=== PATIENT | female | born 1990 | race Caucasian/White ===

== ENCOUNTER 2018-05-25 18:57 | Inpatient (IN) | payer BC, MEDICARE ==
[~2018-05-25] VITALS: Ht 157.5 cm; Wt 85.3 kg
[~2018-05-25 18:57] MED LIST: ETOMIDATE 2MG/ML 10ML VIAL IV ONE; VECURONIUM BROMIDE 10 MG/VIAL IV ONE
[2018-05-25] MEDS ORDERED: SODIUM CHLORIDE 0.9% 1,000 ML IV ONE ×6 (19:22→21:47)
[2018-05-25] MEDS ORDERED: ONDANSETRON HCL 4MG/2ML INJ IV ONE (19:30)
[2018-05-25 20:54] LABS: HEMATOCRIT. 28.6 % (36.0-48.0); HEMOGLOBIN. 9.1 g/dL (12.0-16.0); MEAN CORPUSCULAR HEMOGLOBIN 32.7 pg (28.0-32.0); MEAN CORPUSCULAR VOLUME 102.3 fL (81.0-99.0); MEAN PLATELET VOLUME 11.5 fl (7.4-10.4); PLATELET 181 x1000/uL (130-400); RED BLOOD CELL COUNT 2.79 mill/uL (4.2-5.4); RED CELL DISTRIBUTION WIDTH 13.2 % (11.6-14.6)
[2018-05-25] MEDS ORDERED: METRONIDAZOLE 500 MG PREMIX 100 ML IV ONE (21:15)
[2018-05-25] MEDS ORDERED: CEFTRIAXONE 1 G PREMIX 50 ML IV ONE (21:15)
[2018-05-25 21:24] LABS: CHLORIDE 107 mEq/L (98-107)
[2018-05-25] MEDS ORDERED: ETOMIDATE 2MG/ML 10ML VIAL IV ONE (21:30)
[2018-05-25] MEDS ORDERED: PROPOFOL 10MG/ML 100ML 100 ML IV ONE (21:30)
[2018-05-25] MEDS ORDERED: VECURONIUM BROMIDE IV ONE (21:30)
[2018-05-25 21:31] LABS: HCG SCREEN POSITIVE
[2018-05-25 21:39] LABS: PLATELET ESTIMATE NORMAL
[2018-05-25] MEDS ORDERED: ONDANSETRON HCL 4MG/2ML INJ IV STA (21:47)
[2018-05-25 22:36] LABS: BG BASE EXCESS -26.3 mmol/L (-2.0-2.0); BG CARBOXYHEMOGLOBIN 0.1 % (0.5-1.5); BG DEOXYHEMOGLOBIN 1.8 % (0.0-5.0); BG FRACTION INSPIRED OXYGEN 100; BG HCO3 ACT 5.2 mmol/L (22.0-26.0); BG METHEMOGLOBIN 2.9 % (0.0-1.5); BG OXYGEN SATURATION 98.1 % (92.0-98.5); BG OXYHEMOGLOBIN 95.2 % (94.0-97.0); BG PCO2 31.4 mmHg (35.0-45.0); BG SAMPLE SITE RIGHT BRACHIAL; BG TIDAL VOLUME(mL) 500 mL; BG TOTAL HEMOGLOBIN 6.2 g/dL (12.0-18.0); BG VENT MODE VENT - A/C; BG VENT RATE 14 set
[2018-05-25] MEDS ORDERED: SODIUM BICARBONATE 8.4% 1 MEQ/ML 50ML SYR IV ONE ×6 (22:45→22:53)
[2018-05-25] MEDS ORDERED: PHENYLEPHRINE HCL 10 MG/ML 1ML (IV VIAL) IV ONE (22:57)
[2018-05-25] MEDS ORDERED: EPHEDRINE SULFATE 50MG/ML VIAL ONE (23:01)
[2018-05-25] MEDS ORDERED: FENTANYL CITRATE/PF 50MCG/ML 2ML VIAL ONE (23:07)
[2018-05-25] MEDS ORDERED: ROCURONIUM BROMIDE 10MG/ML VIAL 5ML IV ONE (23:07)
[2018-05-25] MEDS ORDERED: MAGNESIUM/ALUMINUM HYDROXIDE/SIMETHICONE 30ML UDC PO PRN (23:15)
[2018-05-25] MEDS ORDERED: ONDANSETRON HCL 4MG/2ML INJ IV PRN (23:15)
[2018-05-25] MEDS ORDERED: HYDROCODONE/ACETAMINOPHEN 10/325MG TABLET PO PRN (23:15)
[2018-05-25] MEDS ORDERED: CLONIDINE 0.1MG TABLET PO PRN (23:15)
[2018-05-25] MEDS ORDERED: DIPHENHYDRAMINE 50MG/ML VIAL IV PRN (23:15)
[2018-05-25] MEDS ORDERED: IPRATROPIUM/ALBUTEROL 0.5-3(2.5)MG/3ML NEB INH PRN (23:15)
[2018-05-25] MEDS ORDERED: DOCUSATE SODIUM 100MG CAPSULE PO PRN (23:15)
[2018-05-25] MEDS ORDERED: HYDRALAZINE 20MG/ML VIAL IV PRN (23:15)
[2018-05-25] MEDS ORDERED: GUAIFENESIN 200MG/10ML SUGAR FREE UDC PO PRN (23:15)
[2018-05-25] MEDS ORDERED: HYDROMORPHONE HCL/PF 2MG/ML CPJ IV PRN (23:15)
[2018-05-25] MEDS ORDERED: LORAZEPAM 2MG/ML CPJ IV PRN (23:15)
[2018-05-25] MEDS ORDERED: SODIUM BICARBONATE 150 MEQ in DEXTROSE 5% WATER 1,000 ML IV SCH (23:30)
[2018-05-25] MEDS ORDERED: SODIUM BICARBONATE 150 MEQ in DEXTROSE 5% WATER 850 ML IV SCH (23:30)
[2018-05-25 23:33] LABS: CLARITY URINE CLEAR (CLEAR); COLOR URINE YELLOW (YELLOW); KETONES URINE TRACE (NEGATIVE); LEUKOCYTE ESTERASE URINE NEGATIVE (NEGATIVE); NITRITE URINE NEGATIVE (NEGATIVE); OCCULT BLOOD URINE 1+ (NEGATIVE); PH URINE 7.5 (4.5-8.0); PROTEIN URINE 1+ (NEGATIVE); UROBILINOGEN URINE 0.2 E.U./dL (0.2-1.0)
[2018-05-25 23:44] LABS: *BARBITURATES SCREEN URINE NEGATIVE (NEGATIVE); *BENZODIAZEPINES SCREEN URINE NEGATIVE (NEGATIVE); PHENCYCLIDINE URINE SCREEN NEGATIVE (NEGATIVE)
[2018-05-25 23:45] LABS: *AMPHETAMINES SCREEN URINE NEGATIVE (NEGATIVE); METHADONE URINE SCREEN NEGATIVE (NEGATIVE); OPIATES URINE SCREEN NEGATIVE (NEGATIVE)
[2018-05-25 23:48] LABS: *COCAINE SCREEN URINE PRESUMTIVE POSITIVE (NEGATIVE); CANNABINOID URINE SCREEN PRESUMTIVE POSITIVE (NEGATIVE)
[2018-05-26] VITALS (57 sets, daily range): BP systolic 107–184; BP diastolic 62–108
[2018-05-26] MEDS ORDERED: ALBUMIN HUMAN 12.5G/250ML (5%) IV ONE ×2 (00:03→00:18)
[2018-05-26 00:22] LABS: BG BASE EXCESS -13.9 mmol/L (-2.0-2.0); BG CARBOXYHEMOGLOBIN 0.3 % (0.5-1.5); BG DEOXYHEMOGLOBIN 1.4 % (0.0-5.0); BG FRACTION INSPIRED OXYGEN 100; BG METHEMOGLOBIN 0.8 % (0.0-1.5); BG OXYGEN SATURATION 98.6 % (92.0-98.5); BG OXYHEMOGLOBIN 97.5 % (94.0-97.0); BG PCO2 40.8 mmHg (35.0-45.0); BG PH 7.154 (7.350-7.450); BG PO2 264.9 mmHg (75.0-100.0); BG SAMPLE SITE A-LINE; BG TIDAL VOLUME(mL) 600 mL; BG TOTAL HEMOGLOBIN 9.2 g/dL (12.0-18.0); BG VENT MODE VENT - A/C; BG VENT RATE 8 set
[2018-05-26 00:30] LABS: HEMATOCRIT 25.9 % (36.0-48.0); HEMOGLOBIN 8.5 g/dL (12.0-16.0); MEAN CORPUSCULAR VOLUME 91.4 fL (81.0-99.0); PLATELET 81 x1000/uL (130-400); RED BLOOD CELL COUNT 2.83 mill/uL (4.2-5.4); RED CELL DISTRIBUTION WIDTH 15.1 % (11.6-14.6)
[2018-05-26] MEDS ORDERED: METHYLENE BLUE 50 MG/10 ML AMP IV ONE (00:36)
[2018-05-26 00:42] LABS: INR 1.7; PARTIAL THROMBOPLASTIN TIME 41.8 sec (23.4-31.0); PROTHROMBIN TIME 16.6 sec (9.1-11.1)
[2018-05-26] MEDS ORDERED: FENTANYL CITRATE/PF 50MCG/ML 2ML VIAL ONE (00:56)
[2018-05-26 01:54] LABS: CHLORIDE 114 mEq/L (98-107)
[2018-05-26] MEDS ORDERED: ONDANSETRON HCL 4MG/2ML INJ IV PRN ×2 (02:15→03:15)
[2018-05-26] MEDS ORDERED: BISACODYL 10MG SUPP PR PRN (02:15)
[2018-05-26] MEDS ORDERED: DIPHENHYDRAMINE 25MG CAPSULE PO PRN (02:15)
[2018-05-26] MEDS ORDERED: IBUPROFEN 800MG TABLET PO PRN (02:15)
[2018-05-26] MEDS ORDERED: HYDROMORPHONE HCL/PF 2MG/ML CPJ IM PRN (02:15)
[2018-05-26] MEDS ORDERED: IBUPROFEN 400MG TABLET PO PRN (02:15)
[2018-05-26] MEDS ORDERED: CALCIUM CHLORIDE 1GM/10ML SYR IV SCH (02:45)
[2018-05-26] MEDS ORDERED: HYDROMORPHONE HCL/PF 2MG/ML CPJ IV PRN ×2 (02:45→03:15)
[2018-05-26 03:15] LABS: BG BASE EXCESS -5.7 mmol/L (-2.0-2.0); BG CARBOXYHEMOGLOBIN 0.3 % (0.5-1.5); BG DEOXYHEMOGLOBIN 4.3 % (0.0-5.0); BG FRACTION INSPIRED OXYGEN 100; BG HCO3 ACT 20.8 mmol/L (22.0-26.0); BG METHEMOGLOBIN 0.6 % (0.0-1.5); BG OXYGEN SATURATION 95.7 % (92.0-98.5); BG OXYHEMOGLOBIN 94.8 % (94.0-97.0); BG PCO2 44.9 mmHg (35.0-45.0); BG PH 7.284 (7.350-7.450); BG PO2 90.5 mmHg (75.0-100.0); BG SAMPLE SITE A-LINE; BG TIDAL VOLUME(mL) 500 mL; BG TOTAL HEMOGLOBIN 10.7 g/dL (12.0-18.0); BG VENT MODE VENT - A/C; BG VENT RATE 14 set
[2018-05-26] MEDS ORDERED: LABETALOL 5MG/ML SYR 20 MG/4 ML SYRINGE IV PRN (03:15)
[2018-05-26] MEDS ORDERED: MEPERIDINE HCL/PF 25MG/ML CPJ IV PRN (03:15)
[2018-05-26 03:24] LABS: HEMATOCRIT. 29.4 % (36.0-48.0); MEAN CORPUSCULAR HEMOGLOBIN 29.6 pg (28.0-32.0); MEAN CORPUSCULAR VOLUME 87.3 fL (81.0-99.0); MEAN PLATELET VOLUME 8.8 fl (7.4-10.4); PLATELET 62 x1000/uL (130-400); RED BLOOD CELL COUNT 3.36 mill/uL (4.2-5.4); RED CELL DISTRIBUTION WIDTH 14.8 % (11.6-14.6)
[2018-05-26 03:26] LABS: CHLORIDE 113 mEq/L (98-107)
[2018-05-26 03:29] LABS: INR 1.5; PARTIAL THROMBOPLASTIN TIME 39.4 sec (23.4-31.0); PROTHROMBIN TIME 14.5 sec (9.1-11.1)
[2018-05-26 05:44] LABS: PLATELET ESTIMATE DECREASED
[2018-05-26] MEDS ORDERED: PROPOFOL 10MG/ML 100ML 100 ML IV PRN (07:15)
[2018-05-26 08:57] LABS: BASOPHILS % 0.1 % (0.0-2.0); HEMATOCRIT. 32.7 % (36.0-48.0); HEMOGLOBIN. 11.2 g/dL (12.0-16.0); LYMPHOCYTES % 9.3 % (20.0-50.0); MEAN CORPUSCULAR HEMOGLOBIN 29.6 pg (28.0-32.0); MEAN PLATELET VOLUME 9.1 fl (7.4-10.4); MONOCYTES % 6.3 % (2.0-8.0); NEUTROPHILS % 84.3 % (40.0-76.0); PLATELET 77 x1000/uL (130-400); RED CELL DISTRIBUTION WIDTH 15.3 % (11.6-14.6)
[2018-05-26] MEDS: DEXT 5%/0.45% NACL KCL 10MEQ/L 1,000 ML IV SCH ×2 (09:22→20:10)
[2018-05-26 09:23] LABS: CHLORIDE 113 mEq/L (98-107)
[2018-05-26 09:31] LABS: CREATINE KINASE 237 IU/L (26-192)
[2018-05-26 09:33] LABS: CREATINE KINASE MB FRACTION 6.9 ng/mL (0.5-3.6)
[2018-05-26] MEDS: FENTANYL CITRATE/PF 500 MCG in SODIUM CHLORIDE 0.9% 40 ML IV PRN ×3 (10:12→23:50)
[2018-05-26] MEDS: PANTOPRAZOLE SODIUM 40 MG/VIAL IV SCH (10:19)
[2018-05-26] MEDS: MIDAZOLAM HCL 100 MG in DEXT 5% WATER 80 ML IV PRN ×2 (11:03→21:57)
[2018-05-26] MEDS ORDERED: CEFEPIME 1,000 MG in DEXTROSE 5% WATER 50 ML IV SCH (11:30)
[2018-05-26 11:42] LABS: BG BASE EXCESS -3.6 mmol/L (-2.0-2.0); BG CARBOXYHEMOGLOBIN 0.3 % (0.5-1.5); BG FRACTION INSPIRED OXYGEN 100; BG HCO3 ACT 20.4 mmol/L (22.0-26.0); BG METHEMOGLOBIN 0.4 % (0.0-1.5); BG OXYHEMOGLOBIN 98.3 % (94.0-97.0); BG PCO2 33.3 mmHg (35.0-45.0); BG PH 7.405 (7.350-7.450); BG PO2 403.4 mmHg (75.0-100.0); BG SAMPLE SITE A-LINE; BG TIDAL VOLUME(mL) 500 mL; BG VENT MODE VENT - A/C; BG VENT RATE 16 set
[2018-05-26] MEDS: IPRATROPIUM/ALBUTEROL 0.5-3(2.5)MG/3ML NEB HHN SCH ×3 (11:45→19:58)
[2018-05-26] MEDS: AZITHROMYCIN 500 MG in DEXT 5% WATER 250 ML IV SCH (12:05)
[2018-05-26] MEDS: METRONIDAZOLE 500 MG PREMIX 100 ML IV SCH ×2 (12:37→20:09)
[2018-05-26] MEDS: ACETYLCYSTEINE 100MG/ML 10% VIAL 4ML INH SCH (15:10)
[2018-05-26] MEDS: CEFEPIME 1,000 MG in DEXTROSE 5% WATER 50 ML IV SCH (16:01)
[2018-05-26 17:00] LABS: CREATINE KINASE MB FRACTION 5.5 ng/mL (0.5-3.6)
[2018-05-26 20:52] LABS: BASOPHILS % 0.2 % (0.0-2.0); HEMATOCRIT. 26.7 % (36.0-48.0); HEMOGLOBIN. 9.3 g/dL (12.0-16.0); LYMPHOCYTES % 13.9 % (20.0-50.0); MEAN CORPUSCULAR HEMOGLOBIN 29.6 pg (28.0-32.0); MEAN CORPUSCULAR VOLUME 85.3 fL (81.0-99.0); MEAN PLATELET VOLUME 9.8 fl (7.4-10.4); MONOCYTES % 5.8 % (2.0-8.0); NEUTROPHILS % 80.1 % (40.0-76.0); PLATELET 85 x1000/uL (130-400); RED BLOOD CELL COUNT 3.13 mill/uL (4.2-5.4); RED CELL DISTRIBUTION WIDTH 15.5 % (11.6-14.6)
[2018-05-26 21:01] LABS: D-DIMER 3.68 mg/L FEU (<0.50); INR 1.1; PROTHROMBIN TIME 11.4 sec (9.1-11.1)
[2018-05-26] MEDS: SODIUM CHLORIDE 0.9% INJ 3ML FLUSH IVF SCH (21:09)
[2018-05-26] MEDS: DOCUSATE SODIUM 100MG CAPSULE PO SCH (21:09)
[2018-05-27] VITALS (97 sets, daily range): BP systolic 80–157; BP diastolic 40–99
[2018-05-27] MEDS: ACETYLCYSTEINE 100MG/ML 10% VIAL 4ML INH SCH ×4 (00:55→16:25)
[2018-05-27] MEDS: IPRATROPIUM/ALBUTEROL 0.5-3(2.5)MG/3ML NEB HHN SCH ×5 (00:58→20:35)
[2018-05-27] MEDS: CEFEPIME 1,000 MG in DEXTROSE 5% WATER 50 ML IV SCH ×2 (03:59→16:38)
[2018-05-27] MEDS: METRONIDAZOLE 500 MG PREMIX 100 ML IV SCH ×3 (04:31→19:51)
[2018-05-27 05:02] LABS: BASOPHILS % 0.1 % (0.0-2.0); EOSINOPHILS % 0.3 % (0.0-5.0); HEMATOCRIT. 24.2 % (36.0-48.0); HEMOGLOBIN. 8.2 g/dL (12.0-16.0); LYMPHOCYTES % 17.4 % (20.0-50.0); MEAN CORPUSCULAR HEMOGLOBIN 29.4 pg (28.0-32.0); MEAN CORPUSCULAR VOLUME 86.5 fL (81.0-99.0); MEAN PLATELET VOLUME 10.1 fl (7.4-10.4); MONOCYTES % 5.6 % (2.0-8.0); NEUTROPHILS % 76.6 % (40.0-76.0); PLATELET 62 x1000/uL (130-400); RED CELL DISTRIBUTION WIDTH 15.6 % (11.6-14.6)
[2018-05-27] MEDS: SODIUM CHLORIDE 0.9% INJ 3ML FLUSH IVF SCH ×3 (05:07→21:42)
[2018-05-27 05:29] LABS: CHLORIDE 111 mEq/L (98-107)
[2018-05-27] MEDS: FENTANYL CITRATE/PF 500 MCG in SODIUM CHLORIDE 0.9% 40 ML IV PRN (05:35)
[2018-05-27] MEDS: DEXT 5%/0.45% NACL KCL 10MEQ/L 1,000 ML IV SCH ×3 (06:52→16:38)
[2018-05-27] MEDS ORDERED: KCL 20MEQ/100ML PREMIX 100 ML IV SCH (08:00)
[2018-05-27 09:08] LABS: BG BASE EXCESS -0.9 mmol/L (-2.0-2.0); BG CARBOXYHEMOGLOBIN 0.3 % (0.5-1.5); BG DEOXYHEMOGLOBIN 2.6 % (0.0-5.0); BG HCO3 ACT 22.9 mmol/L (22.0-26.0); BG METHEMOGLOBIN 0.6 % (0.0-1.5); BG OXYGEN SATURATION 97.4 % (92.0-98.5); BG OXYHEMOGLOBIN 96.5 % (94.0-97.0); BG PCO2 34.4 mmHg (35.0-45.0); BG PH 7.442 (7.350-7.450); BG PO2 113.5 mmHg (75.0-100.0); BG SAMPLE SITE A-LINE; BG TIDAL VOLUME(mL) 500 mL; BG TOTAL HEMOGLOBIN 8.2 g/dL (12.0-18.0); BG VENT MODE VENT - A/C; BG VENT RATE 14 set
[2018-05-27 09:27] LABS: BASOPHILS % 0.1 % (0.0-2.0); EOSINOPHILS % 0.4 % (0.0-5.0); HEMOGLOBIN. 8.1 g/dL (12.0-16.0); LYMPHOCYTES % 18.7 % (20.0-50.0); MEAN CORPUSCULAR HEMOGLOBIN 29.4 pg (28.0-32.0); MEAN CORPUSCULAR VOLUME 87.3 fL (81.0-99.0); MEAN PLATELET VOLUME 9.8 fl (7.4-10.4); MONOCYTES % 6.8 % (2.0-8.0); PLATELET 56 x1000/uL (130-400); RED BLOOD CELL COUNT 2.75 mill/uL (4.2-5.4); RED CELL DISTRIBUTION WIDTH 15.8 % (11.6-14.6)
[2018-05-27] MEDS: PANTOPRAZOLE SODIUM 40 MG/VIAL IV SCH (09:32)
[2018-05-27] MEDS ORDERED: IOHEXOL-300 100 ML BOTTLE ONE (11:06)
[2018-05-27] MEDS: FERROUS SULFATE 325MG TABLET PO SCH ×2 (12:00→16:39)
[2018-05-27 12:29] LABS: BG BASE EXCESS -0.7 mmol/L (-2.0-2.0); BG CARBOXYHEMOGLOBIN 0.3 % (0.5-1.5); BG CPAP (cmH2O) 0 cm(H2O); BG DEOXYHEMOGLOBIN 3.1 % (0.0-5.0); BG HCO3 ACT 23.6 mmol/L (22.0-26.0); BG METHEMOGLOBIN 0.5 % (0.0-1.5); BG OXYGEN SATURATION 96.9 % (92.0-98.5); BG OXYHEMOGLOBIN 96.1 % (94.0-97.0); BG PCO2 36.9 mmHg (35.0-45.0); BG PH 7.423 (7.350-7.450); BG PO2 100.6 mmHg (75.0-100.0); BG SAMPLE SITE LEFT RADIAL; BG TOTAL HEMOGLOBIN 8.2 g/dL (12.0-18.0); BG VENT MODE VENT - CPAP
[2018-05-27] MEDS: AZITHROMYCIN 500 MG in DEXT 5% WATER 250 ML IV SCH (12:55)
[2018-05-27] MEDS ORDERED: DILTIAZEM HCL 5MG/ML 5ML VIAL IV SCH (13:16)
[2018-05-27 15:31] LABS: BG BASE EXCESS -2.8 mmol/L (-2.0-2.0); BG CARBOXYHEMOGLOBIN 0.3 % (0.5-1.5); BG DEOXYHEMOGLOBIN 8.3 % (0.0-5.0); BG FRACTION INSPIRED OXYGEN 40; BG HCO3 ACT 21.8 mmol/L (22.0-26.0); BG METHEMOGLOBIN 0.2 % (0.0-1.5); BG OXYGEN SATURATION 91.7 % (92.0-98.5); BG OXYHEMOGLOBIN 91.2 % (94.0-97.0); BG PCO2 36.8 mmHg (35.0-45.0); BG PO2 65.1 mmHg (75.0-100.0); BG SAMPLE SITE RIGHT RADIAL; BG TOTAL HEMOGLOBIN 8.6 g/dL (12.0-18.0); BG VENT MODE T-TUBE
[2018-05-27] MEDS: DILTIAZEM HCL 30MG TABLET PO SCH ×2 (18:00→23:06)
[2018-05-27] MEDS: DILTIAZEM HCL 125 MG in DEXT 5% WATER 100 ML IV PRN (20:05)
[2018-05-27 20:16] LABS: BASOPHILS % 0.1 % (0.0-2.0); EOSINOPHILS % 0.3 % (0.0-5.0); HEMOGLOBIN. 9.5 g/dL (12.0-16.0); LYMPHOCYTES % 8.3 % (20.0-50.0); MEAN CORPUSCULAR HEMOGLOBIN 29.9 pg (28.0-32.0); MEAN CORPUSCULAR VOLUME 88.1 fL (81.0-99.0); MEAN PLATELET VOLUME 10.3 fl (7.4-10.4); MONOCYTES % 5.7 % (2.0-8.0); NEUTROPHILS % 85.6 % (40.0-76.0); PLATELET 65 x1000/uL (130-400); RED BLOOD CELL COUNT 3.18 mill/uL (4.2-5.4); RED CELL DISTRIBUTION WIDTH 15.3 % (11.6-14.6)
[2018-05-27] MEDS ORDERED: MORPHINE SULFATE 4 MG/ML CPJ (NOT FOR IM USE) IV PRN (21:00)
[2018-05-27] MEDS: DOCUSATE SODIUM 100MG CAPSULE PO SCH (21:03)
[2018-05-28] VITALS (61 sets, daily range): BP systolic 64–133; BP diastolic 23–74
[2018-05-28] MEDS: IPRATROPIUM/ALBUTEROL 0.5-3(2.5)MG/3ML NEB HHN SCH ×7 (01:18→20:29)
[2018-05-28] MEDS: DEXT 5%/0.45% NACL KCL 10MEQ/L 1,000 ML IV SCH ×4 (02:06→23:15)
[2018-05-28] MEDS: CEFEPIME 1,000 MG in DEXTROSE 5% WATER 50 ML IV SCH ×2 (03:32→19:33)
[2018-05-28] MEDS: METRONIDAZOLE 500 MG PREMIX 100 ML IV SCH ×3 (04:02→20:50)
[2018-05-28 06:02] LABS: BASOPHILS % 0.2 % (0.0-2.0); EOSINOPHILS % 0.6 % (0.0-5.0); HEMATOCRIT. 25.2 % (36.0-48.0); HEMOGLOBIN. 8.5 g/dL (12.0-16.0); LYMPHOCYTES % 14.9 % (20.0-50.0); MEAN CORPUSCULAR HEMOGLOBIN 29.6 pg (28.0-32.0); MEAN CORPUSCULAR VOLUME 87.8 fL (81.0-99.0); MEAN PLATELET VOLUME 10.1 fl (7.4-10.4); MONOCYTES % 5.2 % (2.0-8.0); NEUTROPHILS % 79.1 % (40.0-76.0); PLATELET 72 x1000/uL (130-400); RED BLOOD CELL COUNT 2.87 mill/uL (4.2-5.4); RED CELL DISTRIBUTION WIDTH 15.4 % (11.6-14.6)
[2018-05-28] MEDS: FERROUS SULFATE 325MG TABLET PO SCH ×3 (06:03→19:32)
[2018-05-28] MEDS: DILTIAZEM HCL 30MG TABLET PO SCH ×4 (06:03→23:00)
[2018-05-28] MEDS: SODIUM CHLORIDE 0.9% INJ 3ML FLUSH IVF SCH ×3 (06:03→21:09)
[2018-05-28] MEDS: DILTIAZEM HCL 125 MG in DEXT 5% WATER 100 ML IV PRN ×2 (06:03→19:43)
[2018-05-28 06:17] LABS: CHLORIDE 110 mEq/L (98-107)
[2018-05-28] MEDS: ACETYLCYSTEINE 100MG/ML 10% VIAL 4ML INH SCH ×2 (07:56→15:28)
[2018-05-28 08:26] LABS: BG BASE EXCESS 0.7 mmol/L (-2.0-2.0); BG CARBOXYHEMOGLOBIN 0.1 % (0.5-1.5); BG DEOXYHEMOGLOBIN 10.7 % (0.0-5.0); BG FRACTION INSPIRED OXYGEN 40; BG HCO3 ACT 24.5 mmol/L (22.0-26.0); BG OXYGEN SATURATION 89.3 % (92.0-98.5); BG OXYHEMOGLOBIN 89.2 % (94.0-97.0); BG PCO2 35.5 mmHg (35.0-45.0); BG PH 7.456 (7.350-7.450); BG PO2 50.9 mmHg (75.0-100.0); BG SAMPLE SITE RIGHT RADIAL; BG TOTAL HEMOGLOBIN 8.2 g/dL (12.0-18.0); BG VENT MODE MASK - AEROSOL
[2018-05-28] MEDS: PANTOPRAZOLE SODIUM 40 MG/VIAL IV SCH (09:05)
[2018-05-28] MEDS ORDERED: IOHEXOL-350 100 ML BOTTLE ONE (11:07)
[2018-05-28] MEDS: AZITHROMYCIN 500 MG in DEXT 5% WATER 250 ML IV SCH (13:22)
[2018-05-28] MEDS ORDERED: POTASSIUM CHLORIDE INJ 40 MEQ in DEXT 5% WATER 250 ML IV NR (16:00)
[2018-05-28 18:49] LABS: BASOPHILS % 0.2 % (0.0-2.0); EOSINOPHILS % 0.8 % (0.0-5.0); HEMATOCRIT. 26.2 % (36.0-48.0); HEMOGLOBIN. 8.9 g/dL (12.0-16.0); LYMPHOCYTES % 15.1 % (20.0-50.0); MEAN CORPUSCULAR HEMOGLOBIN 29.9 pg (28.0-32.0); MEAN CORPUSCULAR VOLUME 87.6 fL (81.0-99.0); MEAN PLATELET VOLUME 9.5 fl (7.4-10.4); MONOCYTES % 6.8 % (2.0-8.0); NEUTROPHILS % 77.1 % (40.0-76.0); PLATELET 85 x1000/uL (130-400); RED BLOOD CELL COUNT 2.99 mill/uL (4.2-5.4); RED CELL DISTRIBUTION WIDTH 15.5 % (11.6-14.6)
[2018-05-28] MEDS: DOCUSATE SODIUM 100MG CAPSULE PO SCH (20:52)
[2018-05-29] VITALS (45 sets, daily range): BP systolic 89–132; BP diastolic 43–75
[2018-05-29] MEDS: ACETYLCYSTEINE 100MG/ML 10% VIAL 4ML INH SCH ×3 (00:12→16:26)
[2018-05-29] MEDS: IPRATROPIUM/ALBUTEROL 0.5-3(2.5)MG/3ML NEB HHN SCH ×6 (00:12→20:31)
[2018-05-29] MEDS: METRONIDAZOLE 500 MG PREMIX 100 ML IV SCH ×3 (03:36→21:00)
[2018-05-29] MEDS: CEFEPIME 1,000 MG in DEXTROSE 5% WATER 50 ML IV SCH ×2 (03:36→16:32)
[2018-05-29] MEDS: SODIUM CHLORIDE 0.9% INJ 3ML FLUSH IVF SCH ×3 (05:23→21:00)
[2018-05-29] MEDS: DILTIAZEM HCL 30MG TABLET PO SCH (06:02)
[2018-05-29] MEDS: FERROUS SULFATE 325MG TABLET PO SCH ×3 (06:02→18:07)
[2018-05-29 06:09] LABS: BASOPHILS % 0.3 % (0.0-2.0); EOSINOPHILS % 0.8 % (0.0-5.0); HEMATOCRIT. 25.6 % (36.0-48.0); HEMOGLOBIN. 8.8 g/dL (12.0-16.0); LYMPHOCYTES % 13.8 % (20.0-50.0); MEAN CORPUSCULAR HEMOGLOBIN 30.5 pg (28.0-32.0); MEAN CORPUSCULAR VOLUME 88.7 fL (81.0-99.0); MEAN PLATELET VOLUME 10.1 fl (7.4-10.4); MONOCYTES % 6.4 % (2.0-8.0); NEUTROPHILS % 78.7 % (40.0-76.0); PLATELET 99 x1000/uL (130-400); RED BLOOD CELL COUNT 2.88 mill/uL (4.2-5.4); RED CELL DISTRIBUTION WIDTH 15.4 % (11.6-14.6)
[2018-05-29] MEDS: PANTOPRAZOLE SODIUM 40 MG/VIAL IV SCH (08:52)
[2018-05-29] MEDS: DEXT 5%/0.45% NACL KCL 10MEQ/L 1,000 ML IV SCH ×2 (11:25→15:15)
[2018-05-29 11:57] LABS: CHLORIDE 111 mEq/L (98-107)
[2018-05-29] MEDS ORDERED: MAGNESIUM 1 G PREMIX 100 ML IV SCH (12:00)
[2018-05-29] MEDS: AZITHROMYCIN 500 MG in DEXT 5% WATER 250 ML IV SCH (13:57)
[2018-05-29] MEDS: DILTIAZEM HCL 120MG CAPSULE CD 24HR PO SCH (14:50)
[2018-05-29] MEDS ORDERED: LIDOCAINE HCL/PF 1% 2ML VIAL ONE (14:51)
[2018-05-29 16:14] LABS: BG BASE EXCESS -1.5 mmol/L (-2.0-2.0); BG CARBOXYHEMOGLOBIN 0.3 % (0.5-1.5); BG DEOXYHEMOGLOBIN 3.2 % (0.0-5.0); BG FRACTION INSPIRED OXYGEN 80; BG HCO3 ACT 21.5 mmol/L (22.0-26.0); BG METHEMOGLOBIN 0.1 % (0.0-1.5); BG OXYGEN SATURATION 96.8 % (92.0-98.5); BG OXYHEMOGLOBIN 96.4 % (94.0-97.0); BG PCO2 30.4 mmHg (35.0-45.0); BG PH 7.468 (7.350-7.450); BG PO2 90.1 mmHg (75.0-100.0); BG SAMPLE SITE RIGHT BRACHIAL; BG TOTAL HEMOGLOBIN 9.8 g/dL (12.0-18.0); BG VENT MODE MASK - AEROSOL
[2018-05-29] MEDS: HYDROCODONE/ACETAMINOPHEN 5/325MG TABLET PO PRN (18:45)
[2018-05-29] MEDS: DOCUSATE SODIUM 100MG CAPSULE PO SCH (21:00)
[2018-05-29 21:46] LABS: BASOPHILS % 0.4 % (0.0-2.0); EOSINOPHILS % 1.2 % (0.0-5.0); HEMATOCRIT. 26.6 % (36.0-48.0); HEMOGLOBIN. 9.3 g/dL (12.0-16.0); LYMPHOCYTES % 15.4 % (20.0-50.0); MEAN CORPUSCULAR HEMOGLOBIN 30.8 pg (28.0-32.0); MEAN CORPUSCULAR VOLUME 87.7 fL (81.0-99.0); MEAN PLATELET VOLUME 9.9 fl (7.4-10.4); MONOCYTES % 9.1 % (2.0-8.0); NEUTROPHILS % 73.9 % (40.0-76.0); PLATELET 132 x1000/uL (130-400); RED BLOOD CELL COUNT 3.04 mill/uL (4.2-5.4); RED CELL DISTRIBUTION WIDTH 14.9 % (11.6-14.6)
[2018-05-30] VITALS (34 sets, daily range): BP systolic 86–132; BP diastolic 43–77
[2018-05-30] MEDS: IPRATROPIUM/ALBUTEROL 0.5-3(2.5)MG/3ML NEB HHN SCH ×6 (00:03→21:12)
[2018-05-30] MEDS: ACETYLCYSTEINE 100MG/ML 10% VIAL 4ML INH SCH ×4 (00:03→22:19)
[2018-05-30] MEDS: DEXT 5%/0.45% NACL KCL 10MEQ/L 1,000 ML IV SCH (02:57)
[2018-05-30] MEDS: METRONIDAZOLE 500 MG PREMIX 100 ML IV SCH ×3 (04:31→20:47)
[2018-05-30] MEDS: CEFEPIME 1,000 MG in DEXTROSE 5% WATER 50 ML IV SCH ×2 (04:32→16:00)
[2018-05-30] MEDS: HYDROCODONE/ACETAMINOPHEN 5/325MG TABLET PO PRN ×2 (04:49→16:21)
[2018-05-30] MEDS: SODIUM CHLORIDE 0.9% INJ 3ML FLUSH IVF SCH ×3 (05:22→22:14)
[2018-05-30 05:40] LABS: BASOPHILS % 0.2 % (0.0-2.0); EOSINOPHILS % 2.1 % (0.0-5.0); HEMATOCRIT. 25.5 % (36.0-48.0); HEMOGLOBIN. 8.8 g/dL (12.0-16.0); LYMPHOCYTES % 17.2 % (20.0-50.0); MEAN CORPUSCULAR HEMOGLOBIN 30.4 pg (28.0-32.0); MEAN CORPUSCULAR VOLUME 88.3 fL (81.0-99.0); MEAN PLATELET VOLUME 9.8 fl (7.4-10.4); MONOCYTES % 11.1 % (2.0-8.0); NEUTROPHILS % 69.4 % (40.0-76.0); PLATELET 128 x1000/uL (130-400); RED BLOOD CELL COUNT 2.88 mill/uL (4.2-5.4); RED CELL DISTRIBUTION WIDTH 15.3 % (11.6-14.6)
[2018-05-30 06:20] LABS: CHLORIDE 108 mEq/L (98-107)
[2018-05-30] MEDS: FERROUS SULFATE 325MG TABLET PO SCH ×3 (06:48→16:51)
[2018-05-30] MEDS: DILTIAZEM HCL 120MG CAPSULE CD 24HR PO SCH (09:27)
[2018-05-30] MEDS: PANTOPRAZOLE SODIUM 40 MG/VIAL IV SCH (09:27)
[2018-05-30 11:47] LABS: BG BASE EXCESS -1.3 mmol/L (-2.0-2.0); BG CARBOXYHEMOGLOBIN 0.3 % (0.5-1.5); BG DEOXYHEMOGLOBIN 4.4 % (0.0-5.0); BG FRACTION INSPIRED OXYGEN 32; BG METHEMOGLOBIN 0.3 % (0.0-1.5); BG OXYGEN SATURATION 95.6 % (92.0-98.5); BG PCO2 31.3 mmHg (35.0-45.0); BG PH 7.464 (7.350-7.450); BG PO2 80.1 mmHg (75.0-100.0); BG SAMPLE SITE RIGHT RADIAL; BG TOTAL HEMOGLOBIN 9.6 g/dL (12.0-18.0); BG VENT MODE NASAL CANNULA
[2018-05-30] MEDS: AZITHROMYCIN 500 MG in DEXT 5% WATER 250 ML IV SCH (13:21)
[2018-05-30] MEDS: DOCUSATE SODIUM 100MG CAPSULE PO SCH (20:47)
[2018-05-31] VITALS: BP 124/82
[2018-05-31] MEDS: IPRATROPIUM/ALBUTEROL 0.5-3(2.5)MG/3ML NEB HHN SCH ×6 (00:52→20:45)
[2018-05-31] MEDS: METRONIDAZOLE 500 MG PREMIX 100 ML IV SCH ×3 (03:33→21:14)
[2018-05-31 04:00] VITALS: BP 121/74
[2018-05-31] MEDS: CEFEPIME 1,000 MG in DEXTROSE 5% WATER 50 ML IV SCH ×2 (04:30→16:40)
[2018-05-31] MEDS: SODIUM CHLORIDE 0.9% INJ 3ML FLUSH IVF SCH ×3 (06:05→21:14)
[2018-05-31 06:39] LABS: CHLORIDE 106 mEq/L (98-107)
[2018-05-31 07:21] LABS: BASOPHILS % 0.2 % (0.0-2.0); EOSINOPHILS % 2.3 % (0.0-5.0); HEMATOCRIT. 28.3 % (36.0-48.0); HEMOGLOBIN. 9.8 g/dL (12.0-16.0); LYMPHOCYTES % 18.7 % (20.0-50.0); MEAN CORPUSCULAR HEMOGLOBIN 30.6 pg (28.0-32.0); MEAN CORPUSCULAR VOLUME 88.5 fL (81.0-99.0); MONOCYTES % 11.3 % (2.0-8.0); NEUTROPHILS % 67.5 % (40.0-76.0); PLATELET 186 x1000/uL (130-400); RED CELL DISTRIBUTION WIDTH 15.1 % (11.6-14.6)
[2018-05-31 08:00] VITALS: BP 103/65
[2018-05-31] MEDS: ACETYLCYSTEINE 100MG/ML 10% VIAL 4ML INH SCH ×2 (08:26→15:54)
[2018-05-31] MEDS: DILTIAZEM HCL 120MG CAPSULE CD 24HR PO SCH (09:17)
[2018-05-31] MEDS: FERROUS SULFATE 325MG TABLET PO SCH ×3 (09:17→18:44)
[2018-05-31] MEDS: PANTOPRAZOLE SODIUM 40 MG/VIAL IV SCH (09:17)
[2018-05-31 12:00] VITALS: BP_SYST 107; BP_DIAS 103; BP_DIAS 64
[2018-05-31 16:00] VITALS: BP 113/69
[2018-05-31] MEDS: AZITHROMYCIN 500 MG in DEXT 5% WATER 250 ML IV SCH (16:38)
[2018-05-31] MEDS: ACETAMINOPHEN 325MG TABLET PO PRN (18:45)
[2018-05-31 20:00] VITALS: BP 104/74
[2018-05-31] MEDS: DOCUSATE SODIUM 100MG CAPSULE PO SCH (21:14)
[2018-06-01] VITALS: BP 101/66
[2018-06-01] MEDS: IPRATROPIUM/ALBUTEROL 0.5-3(2.5)MG/3ML NEB HHN SCH ×7 (00:16→22:50)
[2018-06-01 04:00] VITALS: BP 104/65
[2018-06-01] MEDS: METRONIDAZOLE 500 MG PREMIX 100 ML IV SCH ×3 (04:15→20:25)
[2018-06-01] MEDS: CEFEPIME 1,000 MG in DEXTROSE 5% WATER 50 ML IV SCH ×2 (05:22→15:33)
[2018-06-01] MEDS: FERROUS SULFATE 325MG TABLET PO SCH ×3 (06:35→18:12)
[2018-06-01] MEDS: SODIUM CHLORIDE 0.9% INJ 3ML FLUSH IVF SCH ×3 (06:35→21:55)
[2018-06-01 08:00] VITALS: BP 102/62
[2018-06-01] MEDS: AZITHROMYCIN 500 MG TABLET PO SCH (08:48)
[2018-06-01] MEDS: PANTOPRAZOLE SODIUM 40 MG/VIAL IV SCH (08:48)
[2018-06-01] MEDS: DILTIAZEM HCL 120MG CAPSULE CD 24HR PO SCH (08:48)
[2018-06-01 12:00] VITALS: BP 105/69
[2018-06-01] MEDS: ACETAMINOPHEN 325MG TABLET PO PRN (15:32)
[2018-06-01 16:00] VITALS: BP 122/69
[2018-06-01 20:00] VITALS: BP 104/72
[2018-06-01] MEDS: DOCUSATE SODIUM 100MG CAPSULE PO SCH (20:26)
[2018-06-02] VITALS: BP 113/72
[2018-06-02] MEDS: ACETAMINOPHEN 325MG TABLET PO PRN ×2 (02:01→16:20)
[2018-06-02] MEDS: IPRATROPIUM/ALBUTEROL 0.5-3(2.5)MG/3ML NEB HHN SCH ×5 (02:51→20:07)
[2018-06-02] MEDS: CEFEPIME 1,000 MG in DEXTROSE 5% WATER 50 ML IV SCH ×2 (03:30→16:19)
[2018-06-02 04:00] VITALS: BP 103/66
[2018-06-02] MEDS: METRONIDAZOLE 500 MG PREMIX 100 ML IV SCH ×2 (04:09→12:36)
[2018-06-02] MEDS: SODIUM CHLORIDE 0.9% INJ 3ML FLUSH IVF SCH ×3 (06:34→21:16)
[2018-06-02 08:00] VITALS: BP 102/66
[2018-06-02] MEDS: DILTIAZEM HCL 120MG CAPSULE CD 24HR PO SCH (09:00)
[2018-06-02] MEDS: FERROUS SULFATE 325MG TABLET PO SCH ×3 (09:27→18:34)
[2018-06-02] MEDS: PANTOPRAZOLE SODIUM 40 MG/VIAL IV SCH (09:27)
[2018-06-02] MEDS: AZITHROMYCIN 500 MG TABLET PO SCH (09:27)
[2018-06-02 12:00] VITALS: BP 111/72
[2018-06-02 16:00] VITALS: BP 103/66
[2018-06-02 20:00] VITALS: BP 106/69
[2018-06-02] MEDS: DOCUSATE SODIUM 100MG CAPSULE PO SCH (21:00)
[2018-06-02] MEDS ORDERED: MORPHINE SULFATE 4 MG/ML CPJ (NOT FOR IM USE) IV PRN (21:15)
[2018-06-03] VITALS: BP 107/64
[2018-06-03] MEDS: IPRATROPIUM/ALBUTEROL 0.5-3(2.5)MG/3ML NEB HHN SCH ×4 (00:59→12:35)
[2018-06-03 04:00] VITALS: BP 100/63
[2018-06-03] MEDS: ACETAMINOPHEN 325MG TABLET PO PRN (04:38)
[2018-06-03] MEDS: SODIUM CHLORIDE 0.9% INJ 3ML FLUSH IVF SCH (05:14)
[2018-06-03 07:06] LABS: HEMATOCRIT 30.2 % (36.0-48.0); HEMOGLOBIN 10.4 g/dL (12.0-16.0); MEAN CORPUSCULAR HEMOGLOBIN 30.4 pg (28.0-32.0); MEAN CORPUSCULAR VOLUME 88.8 fL (81.0-99.0); PLATELET 330 x1000/uL (130-400); RED BLOOD CELL COUNT 3.41 mill/uL (4.2-5.4); RED CELL DISTRIBUTION WIDTH 15.6 % (11.6-14.6)
[2018-06-03 07:19] LABS: CHLORIDE 105 mEq/L (98-107)
[2018-06-03 08:00] VITALS: BP 114/74
[2018-06-03] MEDS: FERROUS SULFATE 325MG TABLET PO SCH ×2 (08:57→13:33)
[2018-06-03] MEDS: AZITHROMYCIN 500 MG TABLET PO SCH (08:57)
[2018-06-03] MEDS: DILTIAZEM HCL 120MG CAPSULE CD 24HR PO SCH (08:58)
[2018-06-03 12:00] VITALS: BP 105/72
[2018-06-03 13:46] VITALS: BP 105/72
== END 2018-06-03 17:40 | disposition home or self-care (01) | DRG 817 ==
LOC: ER 18:57 → MICUSO 22:37 → ENRESERV 23:20 → 5WST 05-30 17:42
PROVIDERS: ADMIT Internal Medicine; ATTEND Internal Medicine
PROC: 5A1945Z Respiratory Ventilation, 24-96 Consecutive Hours (ICD-10-PCS; 2018-05-25)
PROC: 0BH17EZ Insertion of Endotracheal Airway into Trachea, Via Natural or Artificial Opening (ICD-10-PCS; 2018-05-25)
PROC: 30233N1 Transfusion of Nonautologous Red Blood Cells into Peripheral Vein, Percutaneous Approach (ICD-10-PCS; 2018-05-25)
PROC: 10T20ZZ Resection of Products of Conception, Ectopic, Open Approach (ICD-10-PCS; principal; 2018-05-26)
PROC: 0UB50ZZ Excision of Right Fallopian Tube, Open Approach (ICD-10-PCS; 2018-05-26)
PROC: 30233K1 Transfusion of Nonautologous Frozen Plasma into Peripheral Vein, Percutaneous Approach (ICD-10-PCS; 2018-05-26)
PROC: 30233R1 Transfusion of Nonautologous Platelets into Peripheral Vein, Percutaneous Approach (ICD-10-PCS; 2018-05-26)
DX: O00.101 Right tubal pregnancy without intrauterine pregnancy (principal); A41.9 Sepsis, unspecified organism; R65.21 Severe sepsis with septic shock; J69.0 Pneumonitis due to inhalation of food and vomit; I21.4 Non-ST elevation (NSTEMI) myocardial infarction; K66.1 Hemoperitoneum; J96.01 Acute respiratory failure with hypoxia; O08.82 Sepsis following ectopic and molar pregnancy; I47.1 Supraventricular tachycardia; T79.A3XA Traumatic compartment syndrome of abdomen, initial encounter; O08.89 Other complications following an ectopic and molar pregnancy; O08.5 Metabolic disorders following an ectopic and molar pregnancy; D64.9 Anemia, unspecified; D69.6 Thrombocytopenia, unspecified; E83.42 Hypomagnesemia; F12.10 Cannabis abuse, uncomplicated; F14.10 Cocaine abuse, uncomplicated; F17.200 Nicotine dependence, unspecified, uncomplicated; R73.9 Hyperglycemia, unspecified
CPT/HCPCS: 31500; 36415; 36430; 36600; 71045; 71275; 74177; 76801; 80048; 80051; 80305; 80320; 82375; 82550; 82553; 82805; 82962; 83036; 83605; 83735; 83880; 84145; 84478; 84484; 84702; 84703; 85027; 85379; 85384; 86850; 86900; 86920; 86927; 87070; 87804; 88305; 92610; 93005; 93306; 93970; 94003; 94640; 97163; 97167; 97530; 97535; 99291; C9113; J0456; J0692; J0696; J2250; J2270; J2370; J2405; J2704; J3010; J3475; J3480; J3490; J7030; J7050; J7060; J7070; J7608; J7620; P9016; P9017; P9021; P9034; P9041; Q9967; Q9968; G0480

== ENCOUNTER 2018-06-04 17:10 | Emergency (ER) | payer BC, MEDICARE ==
[~2018-06-04] VITALS: Ht 157.5 cm; Wt 81.0 kg
[2018-06-04 19:39] LABS: BASOPHILS % 0.7 % (0.0-2.0); EOSINOPHILS % 1.7 % (0.0-5.0); HEMATOCRIT. 33.3 % (36.0-48.0); HEMOGLOBIN. 11.2 g/dL (12.0-16.0); LYMPHOCYTES % 23.1 % (20.0-50.0); MEAN CORPUSCULAR HEMOGLOBIN 30.1 pg (28.0-32.0); MEAN CORPUSCULAR VOLUME 89.3 fL (81.0-99.0); MEAN PLATELET VOLUME 9.8 fl (7.4-10.4); MONOCYTES % 7.8 % (2.0-8.0); NEUTROPHILS % 66.7 % (40.0-76.0); PLATELET 398 x1000/uL (130-400); RED BLOOD CELL COUNT 3.73 mill/uL (4.2-5.4); RED CELL DISTRIBUTION WIDTH 15.7 % (11.6-14.6)
[2018-06-04 19:47] LABS: CHLORIDE 103 mEq/L (98-107)
[2018-06-04 20:04] LABS: CLARITY URINE CLEAR (CLEAR); COLOR URINE YELLOW (YELLOW); KETONES URINE 1+ (NEGATIVE); LEUKOCYTE ESTERASE URINE 1+ (NEGATIVE); NITRITE URINE NEGATIVE (NEGATIVE); OCCULT BLOOD URINE NEGATIVE (NEGATIVE); PH URINE 5.5 (4.5-8.0); PROTEIN URINE NEGATIVE (NEGATIVE); UROBILINOGEN URINE 0.2 E.U./dL (0.2-1.0)
[2018-06-04] MEDS ORDERED: IOHEXOL-350 100 ML BOTTLE ONE ×2 (22:15→22:16)
[2018-06-04 22:46] VITALS: BP 125/79
== END 2018-06-04 22:47 | disposition home or self-care (01) ==
LOC: ER 17:10
DX: G89.18 Other acute postprocedural pain (principal); F12.10 Cannabis abuse, uncomplicated; J45.909 Unspecified asthma, uncomplicated
CPT/HCPCS: 36415; 76857; 80053; 81003; 81025; 85025; 99284; Q9967; Z7610